=== PATIENT | male | born 1950 | race Caucasian/White ===

== ENCOUNTER → 2018-01-21 14:16 | Outpatient (CLI) | payer MEDICARE, SELFPAY ==
[2018-01-21 14:36] LABS: Prothrombin Time Fingerstick 38.1 SEC (11.9-14.4)
== END ==
PROVIDERS: Family Provider Family Medicine; PCP Family Medicine; Visit Provider Physician Assistant Medical
DX: I48.91 Unspecified atrial fibrillation (principal)
CPT/HCPCS: 36416; 85610

== ENCOUNTER → 2018-01-25 10:33 | Day surgery (SDC) | payer MEDICARE, SELFPAY ==
[2018-01-24 14:23] VITALS: BMI 45.1
[2018-01-25 11:06] LABS: Prothrombin Time Fingerstick 37.6 SEC (11.9-14.4)
--- NOTE | 2018-01-25 12:25 | PCM.PN.BLA ---
Progress Note DC cardioversion. Atrial fibrillation. The patient was brought into the noninvasive lab. Patient had been adequately anticoagulated for a minimum of 4 weeks with therapeutic INRs. The patient was seen by Dr. Hanson of the critical care division. After appropriate informed consent was obtained anterior posterior pads were applied. The patient then received 14 mg of intravenous etomidate in total. The patient underwent 3 DC cardioversion shocks with 200 J, 300 J, and 300 J of biphasic energy with no conversion to sinus rhythm. Patient otherwise tolerated the procedure well. Conclusion: Unsuccessful DC cardioversion from atrial fibrillation to sinus rhythm. 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
--- NOTE | 2018-01-25 16:22 | PCM.OP.BLANK ---
Problem List (1) A-fib Status: Acute Qualifiers: Atrial fibrillation type: chronic Qualified Code(s): I48.2 - Chronic atrial fibrillation (2) Morbid obesity Status: Acute (3) Obstructive sleep apnea Status: Suspected Operative Report Date of Procedure: 01/25/18 - Conscious sedation Date of Procedure: 01/25/18 CONSCIOUS SEDATION REPORT DATE OF SERVICE: January 25, 2018 BRIEF HISTORY OF PRESENT ILLNESS: The patient is a 67-year-old male who presented for elective outpatient cardioversion due to underlying atrial fibrillation. Patient is typically seen by Dr. Babcock as an outpatient, but Dr. Oviedo is agreed to proceed with the procedure. Patient's last known ejection fraction was 40% and had an INR on presentation of 3.3. She reports she has been n.p.o. since midnight. Patient has had a wisdom tooth extraction with no complications in the past. Patient does report increased fatigue recently, but attributes this to the onset of atrial fibrillation. PHYSICAL EXAMINATION: VITAL SIGNS: Reviewed and were acceptable. GENERAL: The patient is an obese male, in no apparent distress, speaking in full sentences. He is morbidly obese. HEENT: Normocephalic, atraumatic. Mucous membranes are moist and pink. Fair mouth opening noted. Trachea is midline. Good neck mobility. Mallampati 4 CHEST: S1, S2 irregularly irregular. No murmurs, rubs or gallops were noted. LUNGS: Clear to auscultation bilaterally without appreciable wheezes, rales or rhonchi. ABDOMEN: Soft, nontender, nondistended. Positive bowel sounds. EXTREMITIES: There is no clubbing or cyanosis. Bilateral lower extreme of the edema is present ASA Class: II DESCRIPTION OF PROCEDURE: After confirmation of informed consent, the patient's anesthesia plan was reviewed in detail. Etomidate was chosen. Risks and benefits were reviewed and the patient agreed to proceed. At 12:08 PM, the patient was given his first bolus of 4 mg of etomidate. The patient received a total of 3 attempts at a synchronized cardioversion I Dr. Castellanos at 200 J, 300 J and 300 J respectively. In total, the patient required 14 mg of etomidate to achieve an appropriate level of sedation throughout all attempts. This was NOT successful in achieving normal sinus rhythm. The patient was monitored until 12:20 PM, at which time the patient reached his baseline mental status and function. The patient tolerated the procedure well. COMPLICATIONS: Failure to achieve normal sinus rhythm ESTIMATED BLOOD LOSS: None RECOMMENDATIONS: Okay to recover in usual fashion. Code Visit [id number]: Other Procedure See Report - [id number]
== END ==
PROVIDERS: Family Provider Family Medicine; PCP Family Medicine; Visit Provider Internal Medicine Cardiovascular Disease
DX: I48.2 Chronic atrial fibrillation (principal); I50.20 Unspecified systolic (congestive) heart failure; E66.01 Morbid (severe) obesity due to excess calories; Z68.42 Body mass index [BMI] 45.0-49.9, adult; Z79.84 Long term (current) use of oral hypoglycemic drugs; Z79.01 Long term (current) use of anticoagulants; Z79.899 Other long term (current) drug therapy
CPT/HCPCS: 36416; 85610; 92960; 93005; J7040

== ENCOUNTER 2018-02-17 13:04 | Outpatient (RCR) | payer MEDICARE, SELFPAY | END 2018-03-07 23:59 | LOC: DC 13:04 | PROVIDERS: Family Provider Family Medicine; PCP Family Medicine; Visit Provider Family Medicine | DX: E11.9 Type 2 diabetes mellitus without complications (principal); Z71.3 Dietary counseling and surveillance | CPT/HCPCS: 97802 ==

== ENCOUNTER 2018-03-15 13:11 | Outpatient (RCR) | payer MEDICARE, SELFPAY | END 2018-03-15 13:12 | LOC: DC 13:11 | PROVIDERS: Family Provider Family Medicine; PCP Family Medicine; Visit Provider Family Medicine | DX: E11.9 Type 2 diabetes mellitus without complications (principal); Z71.3 Dietary counseling and surveillance | CPT/HCPCS: 97803 ==